=== PATIENT | male | born 1970 | race African-American/Black ===

== ENCOUNTER 2020-04-14 12:16 | Emergency (ER) | payer MEDICAID ==
[~2020-04-14] VITALS: Ht 182.9 cm; Wt 88.0 kg
[2020-04-14 12:18] VITALS: BP 136/79
== END 2020-04-14 14:59 | disposition home or self-care (01) ==
LOC: ER 12:27
DX: M54.12 Radiculopathy, cervical region (principal)
CPT/HCPCS: 93005; 99285